=== PATIENT | female | born 1950 | race Two or more races ===

== ENCOUNTER 2016-05-08 00:43 | Inpatient (IN) | payer MEDICAID ==
[~2016-05-08] VITALS: Ht 170.2 cm; Wt 85.3 kg
[2016-05-08] VITALS (7 sets, daily range): BP systolic 122–128; BP diastolic 62–82
--- NOTE | 2016-05-08 01:05 | NUR ---
To bed 6 a 65 yo female bibself with c/o of fever since yesterday, per patient she also has been coughing, and pain on the left flank area. Patient is aaox4, ambulatory. 99.7F per orem upon arrival in ER, diaporetic. Patient mentioned she took tylenol at home. Gowned. Placed on manager cardiac. Awaiting for er md landa.
--- NOTE | 2016-05-08 01:25 | NUR ---
xt at bedside
[2016-05-08] MEDS ORDERED: CEFTRIAXONE 1GM BAG (ER ONLY) 50 ML IV ONE ×2 (01:30→01:38)
[2016-05-08] MEDS ORDERED: ACETAMINOPHEN ES 500 MG TABLET PO ONE (01:30)
[2016-05-08] MEDS ORDERED: ACETAMINOPHEN ES 500 MG TABLET ONE (01:37)
[2016-05-08] MEDS ORDERED: IV SET PRIMARY 1 EA INFUS.SET MC ONE (01:38)
--- NOTE | 2016-05-08 01:39 | NUR ---
started a saline lock on the right hand g18, blood draw, picked up by lab courier.
[2016-05-08 01:46] LABS: BASOPHILS % (AUTO) 0.4 % (0.0-2.0); EOSINOPHILS % (AUTO) 0.1 % (0.0-6.0); HEMATOCRIT 33 % (33-45); HEMOGLOBIN 10.7 g/dL (11.5-14.8); LYMPHOCYTES % (AUTO) 19.2 % (20.0-44.0); MEAN CORPUSCULAR HEMOGLOBIN 27 PG (26.0-33.0); MEAN CORPUSCULAR HGB CONC 32 g/dl (31.0-36.0); MEAN CORPUSCULAR VOLUME 83 fL (82-100); MONOCYTES # (AUTO) 0.4 /CMM (0.1-1.30); MONOCYTES % (AUTO) 8.5 % (2.0-12.0); NEUTROPHILS # (AUTO) 3.6 /CMM (1.8-8.9); NEUTROPHILS % (AUTO) 71.8 % (43.0-81.0); PLATELET COUNT (AUTO) 277 /CMM (150-450); RED BLOOD CELL COUNT(AUTO) 3.97 MIL/uL (4.0-5.2)
[2016-05-08 01:58] LABS: CALCIUM, SERUM 8.9 mg/dL (8.5-10.1); CARBON DIOXIDE 26 mmol/L (21-32); CHLORIDE 102 mmol/L (98-107); CREATININE 1.1 mg/dL (0.6-1.3); GFR 50 mL/min (>60); GLUCOSE 144 mg/dL (74-106); POTASSIUM 3.6 mmol/L (3.5-5.1); SODIUM SERUM 138 mmol/L (136-145); UREA NITROGEN, BLOOD 14 mg/dL (7-18)
[2016-05-08 02:00] LABS: INR 0.96 (0.87-1.13); PROTHROMBIN TIME 10.2 SECS (9.5-12.7)
[2016-05-08 02:03] LABS: LACTIC ACID 1.2 mmol/L (0.4-2.0)
[2016-05-08 02:04] LABS: TROPONIN I < 0.017 ng/mL (0.00-0.056)
[2016-05-08 02:11] LABS: ALANINE AMINOTRANSFERASE 25 U/L (12-78); ALBUMIN 3.7 g/dL (3.4-5.0); ALKALINE PHOSPHATASE 49 U/L (46-116); ASPARTATE AMINOTRANSFERASE 14 U/L (15-37); B-TYPE NATRIURETIC PEPTIDE 237 PG/ML (0-125); BILIRUBIN,DIRECT 0.1 mg/dL (0.0-0.2); BILIRUBIN,TOTAL 0.4 mg/dL (0.2-1.0); TOTAL PROTEIN, SERUM 7.7 g/dL (6.4-8.2)
--- NOTE | 2016-05-08 02:17 | NUR ---
back from ct.
[2016-05-08 02:21] LABS: APPEARANCE,URINE CLOUDY (CLEAR); BILIRUBIN,URINE NEGATIVE (NEGATIVE); BLOOD, URINE 3+ Ery/uL (NEGATIVE); COLOR,URINE YELLOW (YELLOW); KETONES,URINE TRACE (NEGATIVE); LEUKOCYTE ESTERASE ,URINE 3+ (NEGATIVE); NITRITE, URINE POSITIVE (NEGATIVE); PH,URINE 5.5 (5.0-8.0); PROTEIN,URINE 2+ mg/dl (NEGATIVE); UGLUCOSE NEGATIVE (NEGATIVE)
[2016-05-08 02:27] LABS: ADD URINE CULTURE YES; BACTERIA,URINE Few /HPF (None Seen); SQUAMOUS EPITHELIAL CELL,UR Few /HPF (None Seen); WBC,URINE TOO NUMEROUS TO COUN /HPF (0-3)
[2016-05-08] MEDS ORDERED: CEFTRIAXONE 1 G in IV D5W 50 ML IV ONE (03:30)
[2016-05-08] MEDS ORDERED: IV NS 0.9% 1,000 ML IV PRN (04:13)
[2016-05-08] MEDS ORDERED: CEFTRIAXONE 1 G in IV D5W 50 ML IV SCH (04:30)
[2016-05-08] MEDS ORDERED: ZOLPIDEM TARTRATE 5 MG TABLET PO PRN (04:30)
[2016-05-08] MEDS ORDERED: MORPHINE SULFATE INJ 2 MG/ML DISP.SYRIN IV PRN (04:30)
[2016-05-08] MEDS ORDERED: MAG HYDROX/AL HYDROX/SIMETH 30 ML UDC PO PRN (04:30)
[2016-05-08] MEDS ORDERED: Z GUARD REMEDY 2 OZ OINT TP PRN (04:30)
[2016-05-08] MEDS ORDERED: ONDANSETRON HCL/PF 4 MG/2 ML VIAL IVP PRN (04:30)
[2016-05-08] MEDS ORDERED: MAGNESIUM HYDROXIDE 30 ML UDC PO PRN (04:30)
[2016-05-08] MEDS ORDERED: KETOROLAC TROMETHAMINE INJ 30 MG/ML VIAL IV PRN ×2 (04:30→10:30)
--- NOTE | 2016-05-08 04:32 | NUR ---
Report given to Ximena GILES for delmy.
[2016-05-08] MEDS ORDERED: EZET1TAB7 PO (04:37)
[2016-05-08] MEDS ORDERED: TELM80TA2 PO (04:37)
[2016-05-08] MEDS ORDERED: AZIT250T6 PO (04:37)
[2016-05-08] MEDS ORDERED: HYDR25TA4 PO (04:37)
[2016-05-08] MEDS ORDERED: LETR2.5T7 PO (04:37)
[2016-05-08] MEDS ORDERED: IV NS 0.9% 1,000 ML ONE (05:02)
[2016-05-08] MEDS ORDERED: IV SET PRIMARY PUMP SET 1 EA INFUS.SET MC ONE (05:03)
--- NOTE | 2016-05-08 05:10 | NUR ---
Note yaaone in EDM - 05/08/16 at 0510 by SIMON IV removed. Catheter intact and site benign. Pressure and 4x4 applied to site. No bleeding noted. Patient discharged to home in stable condition. Written and verbal after care instructions given. Patient verbalizes understanding of instruction. Patient is ambulatory with a steady gait.
--- NOTE | 2016-05-08 05:10 | NUR ---
RN NOTE; ROCEPHIN WAS NOT ADMINISTERED DUE TO A DOSE OF ROCEPHIN HAS BEEN GIVEN AT THE ER. DR. BLACK MADE AWARE.
--- NOTE | 2016-05-08 05:51 | NUR ---
RN NOTE; ADMITTED A 65Y/O F, A, OX4. BREATHING EVENLY. NO SOB. NO DISTRESS. NO C/O PAIN OR DISCOMFORT AT THIS TIME. AFEBRILE. VS: WNL. IV SITE INTACT. MEDICAL INFORMATION WAS OBTAINED FROM THE PT AND THE FAMILY AT THE BED SIDE. NEEDS ATTENDED. BODY CHECK DONE. CALL LIGHT GIVEN TO THE PT W/ UNDERSTANDING . NEEDS ATTENDED. BED LOW LOCKED. WILL CONT TO MONITOR AND WILL F/U W/ THE MD'S ORDER. CALLED DR. BLACK AND CLARIFIED THE DIET ORDER TO REGULAR. WILL CONT TO MONITOR.
--- NOTE | 2016-05-08 06:22 | NUR ---
RN NOTE; PT IN BED SLEEPING AROUSES EASILY. BREATHING EVENLY. NO SOB. NO C/O PAIN OR DISCOMFORT. AFEBRILE. NEEDS ATTENDED. BED LOW LOCKED .SRX2. CALL LIGHT WITHIN REACH. WILL CONT TO MONITOR AND WILL ENDORSE TO AM SHIFT FOR BOB.
--- NOTE | 2016-05-08 08:00 | NUR ---
MS 2 RN AM NOTES RECEIVED PT A, OX4. BREATHING EVENLY. NO SOB. NO DISTRESS. NO C/O PAIN OR DISCOMFORT AT THIS TIME. AFEBRILE. VS: WNL. IV SITE INTACT.WITH BRP. NEEDS ATTENDED.CALL LIGHT GIVEN TO THE PT W/ UNDERSTANDING . NEEDS ATTENDED. BED LOW LOCKED. WILL CONT TO MONITOR.
[2016-05-08] MEDS: PANTOPRAZOLE 40 MG TABLET.DR PO SCH (08:37)
--- NOTE | 2016-05-08 09:27 | NUR ---
MS/RN PT. WAS ADMINISTERED HER NICOTINE PATCH, PT. REMOVED AFTER APPLYING AD
[2016-05-08 14:59] LABS: IRON, SERUM 17 ug/dl (50-175); TOTAL IRON BINDING CAPACITY 224 ug/dl (250-450)
[2016-05-08] MEDS: ACETAMINOPHEN 325 MG TABLET PO PRN (15:33)
--- NOTE | 2016-05-08 15:42 | NUR ---
MS-2 RN TYLENOL GIVEN 650MG GIVEN FOR FEVER 100.6F.M PT. ADMINISTERED NORCO FOR HEADACHE. SEEN BY JO ANN DUARTE NP.
[2016-05-08] MEDS: HYDROCODONE/APAP 5/325MG 1 EACH TABLET PO PRN (15:56)
--- NOTE | 2016-05-08 16:42 | NUR ---
RECHECKED PT'S TEMP 99.7.COOLING MEASURES RENDERED AND ENCOURAGEED Addendum: 05/08/16 at 1654 by TEJ WYATT RN ENCOURAGED TO INCREASE FLUIDS.
[2016-05-08] MEDS: IV NS 0.9% 1,000 ML IV PRN (17:12)
--- NOTE | 2016-05-08 17:42 | NUR ---
PT RESTING IN BED DENYING ANY PAIN OR DISTRESS.PT REFUSED EATING MEALS STATED THAT SHE WOULD RATHER DRINK FLUIDS THAN EAT.PT HAS BEEN DRINKING JUICE MOST OF THE TIME AND SKIP ON HER MEALS.ENCOURAGED FLUIDS.
--- NOTE | 2016-05-08 19:30 | NUR ---
RN NOTE; RECEIVED PT IN BED AWAKE AND ALERT. BREATHING EVENLY. NO SOB. NO DISTRESS. SKIN WARM AND DRY. NO C/O PAIN OR DISCOMFORT, NEEDS ATTENDED. BED LOW LOCKED. CALL LIGHT WITHIN REACH. WILL CONT TO MONITOR
[2016-05-08] MEDS ORDERED: SECONDARY IV SET 1 EA INFUS.SET MC ONE (20:19)
[2016-05-08] MEDS: PIPERACILLIN /TAZOBACTAM 3.375 G in IV D5W 50 ML IV SCH (20:23)
[2016-05-08] MEDS ORDERED: LETROZOLE 2.5 MG TABLET ONE (22:24)
[2016-05-08] MEDS: LETROZOLE 2.5 MG TABLET PO SCH (22:33)
[2016-05-09] VITALS (8 sets, daily range): BP systolic 108–119; BP diastolic 60–74
[2016-05-09] MEDS: PIPERACILLIN /TAZOBACTAM 3.375 G in IV D5W 50 ML IV SCH ×3 (03:07→18:33)
[2016-05-09] MEDS: IV NS 0.9% 1,000 ML IV PRN ×2 (03:07→18:37)
[2016-05-09 06:08] LABS: BASOPHILS % (AUTO) 0.5 % (0.0-2.0); EOSINOPHILS % (AUTO) 1.3 % (0.0-6.0); HEMATOCRIT 28 % (33-45); HEMOGLOBIN 9.4 g/dL (11.5-14.8); LYMPHOCYTES # (AUTO) 1.5 /CMM (0.8-4.8); LYMPHOCYTES % (AUTO) 42.6 % (20.0-44.0); MEAN CORPUSCULAR HEMOGLOBIN 28 PG (26.0-33.0); MEAN CORPUSCULAR HGB CONC 33 g/dl (31.0-36.0); MEAN CORPUSCULAR VOLUME 83 fL (82-100); MONOCYTES # (AUTO) 0.5 /CMM (0.1-1.30); MONOCYTES % (AUTO) 13.2 % (2.0-12.0); NEUTROPHILS # (AUTO) 1.5 /CMM (1.8-8.9); NEUTROPHILS % (AUTO) 42.4 % (43.0-81.0); PLATELET COUNT (AUTO) 254 /CMM (150-450); RED BLOOD CELL COUNT(AUTO) 3.39 MIL/uL (4.0-5.2); WHITE BLOOD COUNT (AUTO) 3.4 K/uL (4.3-11.0)
--- NOTE | 2016-05-09 06:24 | NUR ---
RN NOTE; PT IN BED DOZING INTERMITTENTLY. BREATHING EVENLY. NO SOB. W/ EPISODES OF DRY COUGH. NO DISTRESS. NO C/O DYSURIA. REMAINED AFEBRILE DURING THE NIGHT. WITH C/O MILD H/A. ASSISTED W/ ADLS. CALL LIGHT WITHIN REACH. WILL CONT TO MONITOR AND WILL ENDORSE TO AM SHIFT FOR BOB.
[2016-05-09 06:30] LABS: CALCIUM, SERUM 8.4 mg/dL (8.5-10.1); CREATININE 0.8 mg/dL (0.6-1.3); MAGNESIUM 1.5 mg/dL (1.8-2.4); POTASSIUM 4.2 mmol/L (3.5-5.1)
[2016-05-09] MEDS: PANTOPRAZOLE 40 MG TABLET.DR PO SCH (07:59)
--- NOTE | 2016-05-09 08:00 | NUR ---
MS2/RN OPENING NOTE PT. IS IN BED, A&OX4, NOT IN DISTRESS, BREATHING IS UNLABORED, NO FEVER REPORTED BY TIE BINDER NURSE, AND FEED MIXER. PT. SAID SHE IS FEELING BETTER. PT. C/O HEADACHE PAIN 07/15, NORCO PAIN MEDICATION WAS GIVEN. PT. HAD REPORTED USING URINAL THIS MORNING AND URINE WAS YELLOW, AND CLEAR. PT. CALL LIGHT WITHIN REACH, 2 SIDE RAILS UP. ALL NEEDS WERE ATTENDED.
[2016-05-09] MEDS: HYDROCODONE/APAP 5/325MG 1 EACH TABLET PO PRN ×4 (08:03→23:16)
[2016-05-09] MEDS: ACIDOPHILUS/BULGARICUS 1 EACH TAB.CHEW PO SCH ×3 (08:51→18:33)
[2016-05-09] MEDS: HYDROCHLOROTHIAZIDE 25 MG TABLET PO SCH (09:00)
--- NOTE | 2016-05-09 12:00 | NUR ---
PT.'S FAMILY BROUGHT MEDICATION FROM HOME, MICARDIS, AND VYTORIN.
--- NOTE | 2016-05-09 12:07 | NUR ---
DR. GRAVES CAME TO SEE PT. AND WAS MADE AWARE OF LOW MG, AND IRON LEVEL, WITH ORDERS FOR REPLACEMENT.
[2016-05-09] MEDS: Magnesium 1GM/D5W 100ML PREMIX 100 ML IV SCH ×2 (13:12→14:49)
[2016-05-09] MEDS: FERROUS SULFATE (325 MG) 325 MG/TAB TABLET PO SCH (16:50)
[2016-05-09] MEDS: SIMVASTATIN PO SCH (17:05)
[2016-05-09] MEDS: EZETIMIBE PO SCH (17:05)
--- NOTE | 2016-05-09 19:15 | NUR ---
MS RN NOTES RECEIVED ON BED A/O X4,SPEAK TURKISH,BREATHING REGULAR,NOT IN ANY FORM OF DISTRESS.PRESENT IVF INFUSING WELL ON RIGHT HAND,SITE PATENT.DENIES DISCOMFORTS AT THE MOMENT.CALL LIGHT IN REACH,NEEDS ANTICIPATED.
--- NOTE | 2016-05-09 19:30 | NUR ---
PT RESTING IN BED DENYING ANY PAIN OR DISTRESS.WITH ONGOING IVF INFUSING WELL.CALL LIGHT PLACED WITHIN REACH.
[2016-05-09] MEDS: LETROZOLE 2.5 MG TABLET PO SCH (21:53)
--- NOTE | 2016-05-09 22:00 | NUR ---
MS RN NOTES DUE PO MEDS ADMINISTERED,TAKEN WELL.
--- NOTE | 2016-05-09 23:16 | NUR ---
MS RN NOTES C/O HEADACHE 5/10 ON PAIN SCALE,MEDICATED WITH NORCO 5/325MG,1TAB PO FOR HEADACHE.ICE CAP APPLIED TO FOREHEAD.IVF HELD FOR AWHILE.
--- NOTE | 2016-05-09 23:50 | NUR ---
MS RN NOTES SPOKE TO DR HERNÁNDEZ,MADE AWARE OF PATIENT STATUS,WITH NEW ORDER OF HYDRALAZINE 25MG PO Q 6 HOURS FOR SBP ABOVE 160.WILL CONTINUE TO MONITOR STATUS.
[2016-05-10] MEDS ORDERED: hydrALAZINE HCL 25 MG TABLET PO PRN
[2016-05-10] MEDS: PIPERACILLIN /TAZOBACTAM 3.375 G in IV D5W 50 ML IV SCH ×2 (03:17→11:43)
[2016-05-10] MEDS: ACETAMINOPHEN 325 MG TABLET PO PRN (04:54)
--- NOTE | 2016-05-10 04:54 | NUR ---
MS RN NOTES C/O HEADACHE POST AMBULATION TO THE TOILET,TYLENOL 650MG PO GIVEN.LATEST BP 133/80,PULSE 83.
[2016-05-10] MEDS: HYDROCODONE/APAP 5/325MG 1 EACH TABLET PO PRN (04:57)
--- NOTE | 2016-05-10 07:21 | NUR ---
MS RN NOTES STILL HAVING HEADACHE,DENIES N/V,IVF INFUSING AT LOW RATE.IN NO ACUTE DISTRESS.CALL LIGHT IN REACH,NEEDS ATTENDED.ENDORSED TO JAQUAN GILES FOR BOB.
--- NOTE | 2016-05-10 07:45 | NUR ---
RN NOTES RECEIVED PT IN BED. AWAKE, ALERT, ORIENTED X 3. IN NO APPARENT DISTRESS. STATED SHE HAS A MILD HEADACHE, BUT NO MEDICATION NECESSARY AT THIS TIME. NOTED. WILL CONTINUE TO MONITOR. PT'S CALL LIGHT IN REACH
[2016-05-10 07:58] VITALS: BP 146/84
[2016-05-10 08:00] VITALS: BP_SYST 133; BP_SYST 146; BP_DIAS 78; BP_DIAS 84
[2016-05-10 08:09] VITALS: BP 146/84
[2016-05-10] MEDS: ACIDOPHILUS/BULGARICUS 1 EACH TAB.CHEW PO SCH ×2 (08:09→13:00)
[2016-05-10] MEDS: HYDROCHLOROTHIAZIDE 25 MG TABLET PO SCH (08:09)
[2016-05-10] MEDS: PANTOPRAZOLE 40 MG TABLET.DR PO SCH (08:09)
[2016-05-10] MEDS: FERROUS SULFATE (325 MG) 325 MG/TAB TABLET PO SCH (08:09)
[2016-05-10] MEDS: EZETIMIBE PO SCH (08:10)
[2016-05-10] MEDS: SIMVASTATIN PO SCH (08:10)
--- NOTE | 2016-05-10 08:10 | NUR ---
RN NOTES PT REFUSED VYTORIN- SAID SHE TAKES IT AT HS. WILL INFORM MD TO CHANGE ORDERS
--- NOTE | 2016-05-10 13:00 | NUR ---
RN NOTES WITH NEW ORDER TO DISCHARGE PT HOME WITH HOME HEALTH. NOTED AND CARRIED OUT. PT MADE AWARE. RECEIVED ORDER TO INSERT MIDLINE PRIOR TO DISCHARGE. NOTED. WILL WAIT FOR MIDLINE NURSE. SKIN AND BODY ASSESSMENT DONE- SKIN INTACT. DISCHARGE PAPERS AND INSTRUCTIONS DONE VIA EXIT CARE
--- NOTE | 2016-05-10 15:00 | NUR ---
RN NOTES GAUGE 18 MIDLINE INSERTED. PT TOLERATED PROCEDURE WELL.
--- NOTE | 2016-05-10 15:30 | NUR ---
RN NOTES SPOKE WITH BOOT REPAIRER- SAID THAT [facility], OK TO DISCHARGE PT HOME. NOTED. CALLED PT'S DAUGHTER, MILAGROS ([phone]), AND GAVE UPDATE. PT ALSO AWARE. APPRECIATED INFORMATION.
--- NOTE | 2016-05-10 16:00 | NUR ---
RN NOTES PT DISCHARGED ORDERED. VS WNL; IN NO APPARENT DISTRESS.
== END 2016-05-10 16:05 | disposition home health service (06) | DRG 720 ==
LOC: ER 00:48 → MEDSG2 04:03
PROVIDERS: ADMIT Family Medicine; ATTEND Internal Medicine
PROC: 05H533Z Insertion of Infusion Device into Right Subclavian Vein, Percutaneous Approach (ICD-10-PCS; principal; 2016-05-10)
DX: A41.9 Sepsis, unspecified organism (principal); N10 Acute pyelonephritis; E78.5 Hyperlipidemia, unspecified; D25.9 Leiomyoma of uterus, unspecified; D63.8 Anemia in other chronic diseases classified elsewhere; Z85.3 Personal history of malignant neoplasm of breast; Z87.442 Personal history of urinary calculi; I10 Essential (primary) hypertension; M54.5 Low back pain; G89.29 Other chronic pain; Z92.21 Personal history of antineoplastic chemotherapy; Z92.3 Personal history of irradiation; D50.9 Iron deficiency anemia, unspecified; M54.30 Sciatica, unspecified side
CPT/HCPCS: 36415; 71010-TC; 80048-TC; 80076-TC; 81000-TC; 82272-TC; 83540-TC; 83605-TC; 83735-TC; 83880; 84100-TC; 84484-TC; 85025-TC; 85730-TC; 87040-TC; 87081-TC; 87086-TC; 87186-TC; 87400; A4606; J0696; J2543; J3475; J7030; J7060; Z7610